=== PATIENT | male | born 1960 | race Caucasian/White ===

== ENCOUNTER 2018-03-22 06:41 | Inpatient (IN) ==
[~2018-03-22 06:41] MED LIST: LIDOCAINE W/ SODIUM BICARB 0.5 ML SYR ONE; LIDOCAINE W/ SODIUM BICARB 0.5 ML SYR SUBD ONE; Lactated Ringers 1,000 ML PRIMARY IV ONE; Nasal Sanitizer POPSWAB ampule 3 AMP (Nozin) PREOP DOSE ENOS SCH; Sodium Chloride 0.9% 250 ML ONE; Vancomycin Inj 1gm vial ONE; ceFAZolin Inj 2gm (Premix) 2 GM/50 ML BAG IV ONE
[2018-03-22] MEDS ORDERED: Sodium Chloride 0.9% 0 ML ONE (06:59)
[2018-03-22] MEDS ORDERED: PROPOFOL 10 MG/1 ML (200 MG/20 ML) VIAL IV ONE ×4 (11:23→16:41)
[2018-03-22] MEDS ORDERED: Propofol 1,000 MG/100 ML VIAL IV ONE ×4 (11:23→17:39)
[2018-03-22] MEDS ORDERED: REMIFENTANIL HCL 5 MG VIAL IV ONE ×2 (11:24→14:51)
[2018-03-22] MEDS ORDERED: fentaNYL Inj 250 MCG/5 ML VIAL ONE (11:24)
[2018-03-22] MEDS ORDERED: MIDAZOLAM 5 MG/1 ML ONE (11:24)
[2018-03-22] MEDS ORDERED: Sodium Chloride 0.9% vial 20 ML ONE (11:39)
[2018-03-22] MEDS ORDERED: BACITRACIN 50,000 UNIT VIAL IRRIG ONE ×3 (11:39→17:30)
[2018-03-22] MEDS ORDERED: BUPIVACAINE 0.25% W/ EPI - 10 ML VIAL ONE (11:39)
[2018-03-22] MEDS ORDERED: Lactated Ringers 1,000 ML PRIMARY IV ONE ×3 (12:21→18:31)
[2018-03-22] MEDS ORDERED: Acetaminophen 1000mg Inj 1,000 MG/100 ML VIAL IV ONE (12:41)
[2018-03-22] MEDS ORDERED: MIDAZOLAM HCL 50 MG/10 ML VIAL IVP PRN (12:57)
[2018-03-22] MEDS ORDERED: LIDOCAINE W/ SODIUM BICARB 0.5 ML SYR SUBD PRN (12:57)
[2018-03-22] MEDS ORDERED: Gentamicin Inj 40 MG/ML VIAL ONE (14:26)
[2018-03-22] MEDS ORDERED: Vancomycin Inj 1gm vial ONE (14:27)
[2018-03-22] MEDS ORDERED: Sodium Chloride 0.9% vial 10 ML ONE (17:30)
[2018-03-22] MEDS ORDERED: ceFAZolin 1 GM VIAL ONE (17:42)
[2018-03-22] MEDS ORDERED: LIDOCAINE MPF 2% - 5 ML (20 MG/1 ML) ONE (18:21)
[2018-03-22] MEDS ORDERED: HYDROmorphone 2 MG/1 ML ONE ×2 (18:30→19:52)
--- NOTE | 2018-03-22 19:40 | CRNA.PROGR ---
Anesthesia Recovery Phase I - Post Anesthesia Evaluation Patient's Condition on Arrival in Phase I: Fair Pain Level: 0 (somnulant , remains intubated but spont resperations through ett/ t-piece)
--- NOTE | 2018-03-22 19:52 | CRNA.PROGR ---
Anesthesia Time - Procedure/Recovery Time Start Date: 03/22/18 End Date: 03/22/18 Anesthesia : Time In: 11:48 Anesthesia : Time Out: 19:27 Anesthesia : Total Time: 459 - Total Anesthesia Time Total Anesthesia Time (minutes): 459 - Other Weight: 85.729 kg Height: 5 ft 9 in Body Mass Index (BMI): 27.8 Physical Status: P2 Anesthesia Type: General Anesthesia : ET (TIVA)
[2018-03-22] MEDS: HYDROmorphone 2 MG/1 ML IVP PRN ×2 (19:54→20:04)
--- NOTE | 2018-03-22 20:13 | GEN.OPNOTE ---
Operative Note Surgery Date: 03/22/18 Preoperative Diagnosis: 1.) Chronic low back pain. 2.) Adjacent level L2-3 degenerative disc disease. 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 4.) S/P L3-4 hardware removal and in-situ fusion. 5. ) S/P L4-S1 hardware removal, L3-4 TLIF/posterolateral instrumented fusion. 6. ) S/P L4-S1 TLIF/posterolateral instrumented fusion. Postoperative Diagnosis: Same. Procedure: 1.) Partial left L2-3 hemilaminotomy, medial facetectomy, complete foraminotomy. 2.) L2-3 discectomy with arthrodesis of the L2 and L3 endplates. 3.) Fusion of the anterior column of the spine at the L2-3 level from a posterior approach. 4.) Insertion of a 10mm x 11mm x 26mm Tritanium PL cage filled in the center with autograft into the L2-3 interspace. 5.) Posterolateral arthrodesis L2-3 bilaterally in preparation for posterolateral fusion. 6.) Posterolateral arthrodesis L3-4 bilaterally in preparation for posterolateral fusion. 7.) Segmental posterolateral instrumentation L2-L4 using the Merchant[employer] Aleta 3 pedicle scre w and daisha system. 8.) Use of autograft harvested from the same incision, cleaned of soft tissue, and morselized for posterolateral fusion. 9.) Use of medium Findersfeetronic InFuse bone morphogenic protein for posterolateral fusion. 10.) Use of 20 cc of Madison BIO DBM Plus Putty w/Cancellous chips (allograft) for posterolateral fusion. 11.) Use of 45 cc of Cancellous bone chips (allograft) for posterolateral fusion. Surgeon: Mino Mallory MD Finance Consultant: Other ([place]) Anesthesia Provider: Fernando Randolph CRNA Anesthesia Type: General Estimated Blood Loss (mL): 200 Indications: See pre-operative diagnosis. Findings: Degenerated facet joints L2-3/abnormal motioin L2-3 Complications: None Operative Summary: Mr. Herrera was met in the preoperative area. We reviewed the procedure to be performed. He was in agreement on the procedure to be performed. I answered any questions that he had to his satisfaction. Mr. Herrera was brought back to the operating room suite and was put under general anesthesia and intubated by the anesthesia staff. He had a Giraldo catheter placed. He had pneumatic compression hose placed on his lower legs bilaterally. Mr. Herrera was carefully rolled over onto the [place] surgical table with his arms gently positioned upwards with his shoulders abducted less than 90. His arms were well padded with foam padding atop of the padding the surgical arm boards. His chest and axilla was checked to be free from pressure points over the region of the brachial plexus bilaterally. His Giraldo catheter was checked to be free from kinks. His pneumatic compression hose was attached and pneumatic compression device. The C-arm fluoroscopy unit was used to help localize the skin incision for the approach the intended surgical levels incorporating Mr. Herrera's previous incision into the intended skin incision. The intended incision was marked with a skin marker was several crosshatches. Mr. Herrera was prepped and draped in the usual and standard fashion. He was given 2 g of Ancef 1 g of vancomycin IV for perioperative antibiosis. He was given 10 mg of Decadron IV. A standard surgical timeout was performed identifying the correct patient, the patient's symptoms, the correct procedure, and the correctg equipment being available for the procedure. The intended skin incision was injected with quarter percent Marcaine with 1 in 200,000 epinephrine. Approximately 15 mL of local anesthetic was used. The skin was incised with a 10 blade scalpel and all dermal and superficial bleeding points were coagulated with bipolar cautery. The incision was taken down through the subcutaneous tissue/scar tissue from the. patient's previous surgery down to the lumbar fascia. The spinous process of L2 above the patient's previous surgery was identified. Subperiosteal dissection was performed down the spinous process of L2 and out over the L2 lamina bilaterally. Further dissection caudally and exposed the remaining superior aspect of the L3 lamina from the patient's previous surgical procedure. This was dissected out as well in a subperiosteal fashion. More caudally the dissection was taken out laterally earlier to avoid entering into any previously decompressed portions of the spinal canal. The dissection was taken out lateral to the facet joints and the posterior lateral fusion mass bilaterally. The dissection was then taken out further laterally over the L2 transverse process bilaterally as well as to the lateral aspect of the posterior lateral fusion mass from L3-L4 bilaterally. Gelpi retractors were placed for self-retaining retraction. Soft tissue was cleaned over the posterior aspect of the spine including the bilateral posterior lateral fusion mass from the patient's previous surgery. This was performed with Bovie cautery and a large Le[place]ell rongeur. Extensive decortication was then performed of the L2 transverse processes bilaterally as well as the posterior lateral fusion mass bilaterally from L3-L4. This was performed with the [employer] high-speed electrical drill with a matchstick bit. The bone dust created was collected and saved to be used as autograft for the fusion portion of the procedure. The Merchant[employer]le neuro navigation reference arc was then securely attached to the L2 spinous process. A spin was performed with the Swogo 3-D fluoroscopy unit. The zoomsquare neuro navigation pedicle probe was then used to cannulate the L2 pedicles bilaterally as well as to recannulate the L3 and L4 pedicles bilaterally. The internal aspect the pedicles were palpated with a small ball- tip instrument to assure that there are no cortical breaches. The cannulation tracks in the pedicles were then tapped with the Merchant[employer]le Aleta 3 pedicle tap. The internal aspects of the pedicles were palpated again with a possible small ball-tip instrument. The pedicle screws were then placed. 5.5 x 55 mm pedicle screws were placed into the L2 pedicles bilaterally. 6.5 x 60 mm pedicle screws were placed into the L3 and L4 pedicles bilaterally. The pedicle screws all obtained good purchase in the pedicle and vertebral body bone. The pedicle screws were then all interrogated with triggered EMGs. All the pedicle screws demonstrated sufficient impedance indicating that they were not in close proximity to nerve structures with the exception of the right L4 pedicle screw which had a reading of 14 mA. Another spin was performed at the 3 -D fluoroscopy unit providing further confirmation of the placement of the pedicle screws. The right L4 pedicle screw did appear to be medial, it was subsequently removed. A partial hemilaminectomy of L2 on the left with medial facetectomy and complete foraminotomy was then performed. The facet joints bilaterally were abnormal with widened and hypertrophied joints. There was thickened ligament encountered during the decompression which produced lateral recess stenosis which was removed decompressing the lateral recess. The decompression was taken across the midline underneath the remaining bone on the right side of the canal. A [place] 4 instrument was used to carefully dissect the soft tissue lateral to the takeoff of the L2 nerve root identifying the L2-3 disc space. The L2 nerve root and thecal sac were carefully retracted with a D'rrvicky nerve root retractor. Epidural veins over the disc space were coagulated with bipolar cautery. An annulotomy was performed in the L2-3 disc space on the left with a 10 blade scalpel. The disc space was quite collapsed and was not able to be entered until some of the inferior endplate of the L2 vertebral body overhanging the L3 vertebral body was drilled away with a high-speed drill. Disc was then removed from the disc space with pituitary Ski Patrol Officer. Additional disc cartilaginous cartilaginous endplate was removed from the disc space using the K2 disc space patty from a size 7 mm disc space shaver to a size 9 mm disc space shaver in 1 mm increments. Disc material laterally in the disc space was loosened with the large down-biting Nicholas curet bilaterally with the fragments subsequently being removed with a pituitary rongeur. The L2 and L3 endplates were then decorticated using the large Nicholas down-biting curet. The L2-3 disc space was then irrigated with bacitracin irrigation. Approximately 2-3 mL of Madison BIO DBM plus putty with cancellus chips was then placed into the L2-3 interspace and moved anteriorly with a bone tamp. The interspace was incised with the appropriate size lumbar interbody cage. A 10 mm x 11 mm x 26 [address] Tritanium titanium [address] titanium lumbar interbody cage was then selected and filled in the center with autograft. The cage was then inserted into the L2-3 interspace and gently countersunk with a bone tamp and mallet. The cage obtained good purchase between the L2 and L3 endplates. Lateral fluoroscopy demonstrated the cage to be in good position. Attention was turned back to the posterior instrumentation. Two 6 mm x 70 mm pre-bent Madison titanium Aleta 3 rods were selected and placed into the [place] of the pedicle screws from L2-L4 bilaterally. Set screws were then placed over the rods in the [place]ips of the pedicle screws. These were first tightened down hand tight and then tightened down to their final tightness using the torque counter torque device. The surgical site was then pulse lavaged with 3 L of bacitracin/vancomycin/ gentamycin solution. The surgical site was then irrigated with hydrogen peroxide. The hydrogen peroxide was then irrigated away with bacitracin irrigation. The medium Medtronic infused bone morphogenic protein which was in for strips were then placed lateral to the hardware construct over the previously decorticated bony elements from the L2 transverse process down over the L3-4 fusion mass from the patient's previous surgical procedure. Any remaining autograft was mixed with 45 mL of cancellus bone chips (allograft) and this mixture was placed lateral to the hardware construct on the left from the L2 transverse process to over the L3-4 fusion mass and placed medial and lateral to the hardware construct on the right from the L2 transverse process to over the L3-4 fusion mass. The remaining approximately 17 mL of Jorge bio DBM plus putty with cancellus chips was then split with this product being placed over the cancellus chips lateral to the hardware construct on the left in medial and lateral to the hardware construct on the right. FloSeal hemostatic agent was placed in the hemilaminotomy/medial facetectomy/ foraminotomy site. This was cut covered over with a strip of Gelfoam. A medium Hemovac drain was then placed into the surgical site. The closure portion of the procedure was then begun. The lumbar fascia was reapproximated with #1 PDS suture as well as #1 Vicryl suture in an interrupted fashion. The surgical site was then irrigated with bacitracin irrigation. The deep subcutaneous tissue was reapproximated with 2- 0 Vicryl suture in a interrupted fashion. The dermis and superficial subcutaneous tissue was then reapproximated with 3-0 Vicryl suture in an inverted interrupted fashion. The Ioban drape was pulled back from the skin edges. The final layer closure was performed surgical stainless steel gely. The incision was cleansed with a bacitracin soaked sponge and dried with a sterile dry sponge. The incision was [place] then dressed with a Mepilex dressing. The surgical drain was then secured with a 2-0 Vicryl suture. The drain site was then dressed. All surgical drapes were then removed from Mr. Herrera. He was carefully rolled over onto the PACU stretcher. He was awoken and extubated by the anesthesia staff. He was taken to the recovery room in stable condition. All surgical counts were reported as correct by the scrub and circulating personnel.
--- NOTE | 2018-03-22 21:11 | NEURO.PROG ---
Subjective Post Op Day: 0 Additional Details: Patient seen in PACU, just prior to transfer to floor. He was awake but somewhat groggy. He was following commands and moving all extremities including the feet and toes bilaterally. I had called his sister, Kate per his request at the end of surgical procedure. Objective : Data - Vital Signs Vital Signs and I&O: Vital Signs - Last Taken Temperature 97.2 F 03/22/18 20:20 Pulse Rate 59 L 03/22/18 20:20 Respiratory Rate 10 L 03/22/18 20:20 Blood Pressure 131/72 03/22/18 20:20 Pulse Ox 96 03/22/18 20:20 Intake and Output (24hr x 4 totals) 03/20/18 03/21/18 03/22/18 03/23/18 05:59 05:59 05:59 05:59 Intake Total 4600 / 4600 Output Total 1175 / 1175 Balance 3425 / 3425
[2018-03-22] MEDS ORDERED: MORPHINE SULFATE 2 MG/1 ML IVP PRN (21:18)
[2018-03-22] MEDS ORDERED: oxyCODONE/APAP 10/325 Tab 1 EACH TAB PO PRN (21:18)
[2018-03-22] MEDS ORDERED: ceFAZolin Inj 1 GM in Sodium Chloride 0.9% 100 ML IV SCH ×2 (21:22→21:30)
[2018-03-22] MEDS: MORPHINE SULFATE 2 MG/1 ML IVP PRN (22:20)
--- NOTE | 2018-03-22 22:20 | CONSULT ---
Consult Note - Consult Consult Date: 03/22/18 Reason for Consult: PostOp Consulation : Neuro (Neurosurgery, Dr. Mallory) Requesting Physician: Dr. Mallory Primary Care Provider: KAVEH BARCENAS [facility] - History of Present Illness Date of Service: 03/22/18 Time of Service: 22:16 Chief Complaint: Back pain History of Present Illness: This is a pleasant 57-year-old male with chronic lymphocytic leukemia, seizure disorder, and problems with chronic back pain. He had a prior back surgery. He had noticed earlier this year per my review of the medical record that he developed worsening back pain and was really incapacitated for upwards of a couple months. The patient visited 2 neurosurgeons and opted to proceed with lumbar surgery with Dr. Mallory today. See his surgical notes regarding the procedure. Postoperative, the patient is still a little groggy and tired from anesthesia, but alert, oriented to person. He does answer some questions, but he still quite tired waking up as well. He denied any chest pain. No nausea or vomiting. His pain thus far is controlled postoperatively. Past Medical History Medical History: 1. Chronic lymphocytic leukemia. 2. Seizure disorder. 3. Chronic back pain Surgical History: 1. Prior lumbar surgery Pertinent Family History: Mother due diabetes on my review of medical record and father due to liver cancer Past Social History: History of smoking. Not . [place], [place]. No children. Does not Drink alcohol. Tobacco Use: Former Smoker In the Past 12 Months, Have Used or Abuse Any of the Following Substance: None Alcohol Use: None Review of Systems - Review of Systems ROS Unobtainable: Due to Condition (recovering from effects of anesthesia.) - Eye Exam Eye Exam: REPORTS: Negative System Review, Acuity Good, Other (denies vision loss) - Respiratory Respiratory: REPORTS: Negative System Review - Cardiovascular Cardiovascular: REPORTS: Negative System Review - Musculoskeletal Musculoskeletal: REPORTS: Back Pain (chronic) Medication / Allergies Home Medications: Home Medications 3 Medication Instructions Recorded Confirmed Type alprazolam 1 mg tablet 1 mg PO BID-TID PRN 02/27/18 03/22/18 History imatinib 100 mg capsule 400 mg PO QID cap 02/27/18 03/22/18 History lamotrigine 150 mg tablet 150 mg PO BID 02/27/18 03/22/18 History levetiracetam 250 mg tablet 250 mg PO BID 02/27/18 03/22/18 History pregabalin 200 mg capsule 200 mg PO BID 02/27/18 03/22/18 History Allergies/Adverse Reactions: Allergies 3 Allergy/AdvReac Type Severity Reaction Status Date / Time codeine Allergy Severe Siezures Verified 03/22/18 07:30 Exam - Vitals Vital Signs: Vital Signs Temperature 97.6 F Temperature Source Temporal Artery Scan Pulse Rate [Pulse Oximeter] 76 Pulse Rate 59 Respiratory Rate 18 Blood Pressure [Right Arm] 134/74 Blood Pressure 131/72 Pulse Ox 97 Oxygen Flow Rate 2 Oxygen Delivery Method Nasal Cannula Height 5 ft 9 in Weight 189 lb - General General Appearance: No Acute Distress - Head Head Exam: Normocephalic Additional Head Exam Details: some swelling around eyes and in face post operatively (was in prone position) - Eye Eye Exam: POSITIVE: No Scleral Icterus - ENT ENT Exam: POSITIVE: Mucous Membranes Dry - Neck Neck Exam: Normal Inspection, No Tenderness, No Lymphadenopathy, No Thyromegaly , JVP is not Raised - Respiratory Respiratory Exam: POSITIVE: Clear to Auscultation - Bilaterally, Breathing Non Labored - Cardiovascular Cardiovascular Exam: POSITIVE: RRR, No Murmur, No Clicks, No Gallops, No Rubs, No JVD - GI/Abdominal GI/Abdominal Exam: POSITIVE: Normal Bowel Sounds, Non Tender, Non Distended, Soft - Rectal Rectal Exam: POSITIVE: Deferred - External Exam: POSITIVE: Deferred Exam: POSITIVE: Deferred - Extremities Extremities Exam: POSITIVE: No Clubbing Present, No Edema Present, No Cyanosis Present - Neurological Neurological Exam: POSITIVE: Alert, No Facial Droop, Speech Intact / Clear, Moves All Extremities Equally - Central Line Examination Central Line Present on Admission: No Assessment and Plan - Patient Problems (1) CLL (chronic lymphocytic leukemia) Current Visit: Yes Status: Acute Code(s): C91.90 - Lymphoid leukemia, unspecified not having achieved remission (2) Seizure disorder Current Visit: Yes Status: Acute Code(s): G40.909 - Epilepsy, unspecified, not intractable, without status epilepticus (3) Chronic back pain Current Visit: No Status: Chronic Code(s): M54.9 - Dorsalgia, unspecified; G89.29 - Other chronic pain (4) Status post lumbar surgery Current Visit: Yes Status: Acute Code(s): Z98.890 - Other specified postprocedural states - Assessment / Plan Additional Assessment/Plan Details: resume keppra and lamictal to prevent seizures resume CLL medications PT/OT no DVT prophylaxis until okay with neurosurgery pain meds I agree with IV fluids thanks for consult, will be the Hospitalist service's pleasure to assess and advise on medical issues during this hospital stay.
[2018-03-22] MEDS: LevETIRAcetam Tab 500 MG TABLET PO SCH (23:34)
[2018-03-22] MEDS: IMATINIB 400 MG PO SCH (23:35)
[2018-03-22] MEDS: lamoTRIgine 100 MG TABLET PO SCH (23:35)
[2018-03-22] MEDS: ALPRAZolam Tab 1 MG TABLET PO PRN (23:53)
[2018-03-22] MEDS: PREGABALIN 100 MG CAPSULE PO SCH (23:54)
[2018-03-23] MEDS: ceFAZolin Inj 1 GM in Sodium Chloride 0.9% 100 ML IV SCH ×2 (01:51→11:19)
[2018-03-23] MEDS: oxyCODONE/APAP 10/325 Tab 1 EACH TAB PO PRN ×5 (01:52→21:19)
[2018-03-23 05:24] LABS: BASOPHILS # (AUTO) 0.02 10*3/UL; BASOPHILS % (AUTO) 0.2 % (0-1); EOSINOPHILS # (AUTO) 0.07 10*3/UL; EOSINOPHILS % (AUTO) 0.8 % (0-8); Hematocrit [HCT] 35.4 % (42.0-52.0); Hemoglobin [HGB] 12.3 g/dL (14.0-18.0); MEAN CORPUSCULAR HEMOGLOBIN 33.1 PG (27-31); MEAN CORPUSCULAR HGB CONC 34.7 g/dL (33-37); MEAN CORPUSCULAR VOLUME 95.2 FL (80-90); MEAN PLATELET VOLUME 11.5 FL (7.4-12.2); MONOCYTES # (AUTO) 0.64 10*3/UL (0.3-0.8); NEUTROPHILS # (AUTO) 7.46 10*3/UL; NEUTROPHILS % (AUTO) 81.9 % (50-80); RED BLOOD COUNT 3.72 10^6/uL (4.70-6.10)
[2018-03-23 05:31] LABS: BLOOD UREA NITROGEN 10 mg/dL (7-22)
[2018-03-23 05:42] LABS: PLATELET MORPHOLOGY COMMENT NORMAL MORPHOLOGY (NORM); RBC MORPHOLOGY COMMENT NORMAL MORPHOLOGY (NORM); WBC MORPHOLOGY COMMENT NORMAL MORPHOLOGY (NORM)
--- NOTE | 2018-03-23 05:54 | NEURO.PROG ---
Subjective Post Op Day: 1 Pain Management: PO Berrios Catheter: No Diet: Regular Ambulating: No Additional Details: Awake and alert. Moving all extremities. Denies any leg symptoms including leg pain, parasthesias, or weakness. Good knee flexion, dorsiflexion, plantarflexion bilaterally. Drain output - 230cc. Still has berrios catheter. Has not been out of bed yet. PLAN: 1.) Continue post-operative pain management. 2.) Discontinue berrios catheter. 3.) Mobilize. Objective : Data - Labs CBC and BMP: 03/23/18 03:58 03/23/18 03:58 - Vital Signs Vital Signs and I&O: Vital Signs - Last Taken Temperature 98.0 F 03/23/18 04:57 Pulse Rate 74 03/23/18 04:57 Respiratory Rate 18 03/23/18 04:57 Blood Pressure 120/65 03/23/18 04:57 Pulse Ox 97 03/23/18 04:57 Intake and Output (24hr x 4 totals) 03/20/18 03/21/18 03/22/18 03/23/18 05:59 05:59 05:59 05:59 Intake Total 5000 / 5000 Output Total 2255 / 2255 Balance 2745 / 2745
[2018-03-23] MEDS: lamoTRIgine 100 MG TABLET PO SCH ×3 (08:15→23:10)
[2018-03-23] MEDS: LevETIRAcetam Tab 500 MG TABLET PO SCH ×2 (08:15→21:18)
[2018-03-23] MEDS: PREGABALIN 100 MG CAPSULE PO SCH ×2 (08:15→23:07)
[2018-03-23] MEDS: IMATINIB 400 MG PO SCH ×2 (08:18→15:10)
[2018-03-23] MEDS: ALPRAZolam Tab 1 MG TABLET PO PRN (08:18)
[2018-03-23] MEDS ORDERED: lamoTRIgine 100 MG TABLET PO SCH (09:00)
[2018-03-23] MEDS ORDERED: LevETIRAcetam Tab 500 MG TABLET PO SCH (09:00)
[2018-03-23] MEDS ORDERED: PREGABALIN 100 MG CAPSULE PO SCH (09:00)
[2018-03-23] MEDS ORDERED: IMATINIB 400 MG PO SCH (09:00)
[2018-03-23] MEDS: MORPHINE SULFATE 2 MG/1 ML IVP PRN (09:34)
[2018-03-23] MEDS ORDERED: Propofol 1,000 MG/100 ML VIAL IV ONE (10:02)
[2018-03-23] MEDS ORDERED: PROPOFOL 10 MG/1 ML (200 MG/20 ML) VIAL IV ONE (10:02)
[2018-03-23] MEDS ORDERED: DEXAMETHASONE PF 10 MG/1 ML VIAL ONE (10:16)
[2018-03-23] MEDS ORDERED: ONDANSETRON 4 MG/2 ML VIAL ONE (10:16)
[2018-03-23] MEDS ORDERED: POTASSIUM CHLORIDE 20 MEQ TAB PO ONE (10:21)
--- NOTE | 2018-03-23 11:42 | PTI REPORT ---
Thank you for the referral of Cooper Herrera. He was seen on 03/23/18 for an inpatient evaluation status post lumbar fusion. SUBJECTIVE: The patient is a 57-year-old male who underwent a lumbar fusion yesterday by Dr. Mallory. The patient states he lives in [place]. He states he had been living with his mom until she approximately three years ago. He states he is currently totally disabled due to his epilepsy. PAST MEDICAL HISTORY: Past medical history can be found in the patient's medical record. OBJECTIVE FINDINGS: Pain: The patient rates his pain at 8 to 9/10 on the verbal analog scale (0=no pain, 10=worst pain). Cognition: The patient is a little bit slower to process information and takes a little extra time to communicate with. Range of motion: Range of motion of the lower extremities is good. Range of motion of the upper extremities is good. Sensation/Strength: The patient has good sensation and strength of both lower extremities including knees, toes, and all other movement. Core strength is hard to assess due to pain. Transfers: We will assess the patient's transfers once his lumbar corset arrives. ASSESSMENT: The patient is post op lumbar fusion. The patient is stable and doing well. There is a lumbar corset coming from [place] from the retail equipment associate that we are to receive before transferring and ambulating. We will continue our assessment at that time. The patient does not have any steps or stairs into his home but we will have to make sure that he is independent in all ADLs before being transferred to [place]. Short-Term Goals: To be met by discharge from inpatient: Patient will be able to perform all bed mobility and transfers independently. Long-Term Goals: To be met following discharge from inpatient: Patient will return home, independent with all ADLs and functional mobility. TREATMENT PLAN: Patient will be seen B.I.D during the week and one time per day over the weekend as an inpatient for transfers, ambulation, and working toward independence in all ADLs before discharge. INITIAL TREATMENT: Treatment today consisted of the initial evaluation activities only. RODY
[2018-03-23] MEDS ORDERED: ALPRAZolam Tab 1 MG TABLET PO PRN (16:10)
--- NOTE | 2018-03-23 16:40 | PT.PROG ---
Progress Note Progress Note: S. Patient stated that he is feeling a little better than this morning, he is very concerned about his pain at this time. O. Patient performed log roll transfer to seated then stood and ambulated 24 feet from the bed to sink and back to the bed. Patient performed log roll transfer back to supine where he was left with alarm and call light. A. Patient tolerated ambulation fair, he is very hesitant and requires frequent verbal cues to stay motivated and complete ambulation. Patient would continue to benefit from skilled therapy to increase strength and mobility at this time. P. Continue POC.
--- NOTE | 2018-03-23 19:17 | PDOC(PROG) ---
Date of Service: 03/23/18 Time of Service: 14:00 Interval History: no chest pain, no SOB, no nausea or vomiting. face swelling is better/ resolved. lots of pain walking. got an extra dose of CLL drug and doses clarified and adjusted for everything. Objective : Data - Labs CBC and BMP: 03/23/18 03:58 03/23/18 03:58 Objective : Exam - General General Appearance: No Acute Distress, Cooperative Additional General Exam Details: Vital Signs - Last Taken Temperature 97.6 F 03/23/18 17:00 Pulse Rate 80 03/23/18 17:00 Respiratory Rate 16 03/23/18 17:00 Blood Pressure 124/67 03/23/18 17:00 Pulse Ox 92 03/23/18 17:00 - Head Additional Head Exam Details: face swelling improved. has some cheek bruising. - Eye Eye Exam: No Scleral Icterus - ENT ENT Exam: Mucous Membranes Moist - Respiratory Respiratory Exam: Clear to Auscultation - Bilaterally, Breathing Non Labored - Cardiovascular Cardiovascular Exam: RRR, No Murmur, No Clicks, No Gallops, No Rubs, No JVD - GI/Abdominal GI/Abdominal Exam: Non Tender, Non Distended, Soft - Extremities Extremities Exam: No Clubbing Present, No Edema Present, No Cyanosis Present - Neurological Neurological Exam: Alert, Oriented x 3, No Facial Droop, Speech Intact / Clear, Moves All Extremities Equally Additional Neurological Exam Details: slow with ambulation, but in some pain, took two people with standby to help walk Assessment and Plan - Patient Problems (1) CLL (chronic lymphocytic leukemia) Current Visit: Yes Status: Acute Code(s): C91.90 - Lymphoid leukemia, unspecified not having achieved remission (2) Seizure disorder Current Visit: Yes Status: Acute Code(s): G40.909 - Epilepsy, unspecified, not intractable, without status epilepticus (3) Chronic back pain Current Visit: No Status: Chronic Code(s): M54.9 - Dorsalgia, unspecified; G89.29 - Other chronic pain Qualifiers: Back pain location: low back pain Back pain laterality: bilateral Sciatica presence: without sciatica Qualified Code(s): M54.5 - Low back pain; G89.29 - Other chronic pain (4) Status post lumbar surgery Current Visit: Yes Status: Acute Code(s): Z98.890 - Other specified postprocedural states - Assessment / Plan Additional Assessment/Plan Details: adjusted CLL medicaitons. continue PT and OT stopped IV fluids saline lock IV catheter out tomorrow AED drugs should continue
[2018-03-23] MEDS: ALPRAZolam Tab 1 MG TABLET PO SCH (23:10)
[2018-03-24] MEDS: oxyCODONE/APAP 10/325 Tab 1 EACH TAB PO PRN ×5 (02:23→22:12)
[2018-03-24 06:13] LABS: BLOOD UREA NITROGEN 10 mg/dL (7-22); BUN/CREATININE RATIO 11.11 (6-20)
[2018-03-24] MEDS: lamoTRIgine 100 MG TABLET PO SCH ×3 (08:26→22:11)
[2018-03-24] MEDS: ALPRAZolam Tab 1 MG TABLET PO SCH ×3 (08:26→22:11)
[2018-03-24] MEDS: PREGABALIN 100 MG CAPSULE PO SCH ×2 (08:27→22:11)
[2018-03-24] MEDS: LevETIRAcetam Tab 500 MG TABLET PO SCH ×2 (08:27→20:46)
[2018-03-24] MEDS: IMATINIB 400 MG PO SCH (08:30)
--- NOTE | 2018-03-24 08:47 | NEURO.PROG ---
Subjective Post Op Day: 2 Pain Management: PO Giraldo Catheter: Yes Diet: Regular Ambulating: Yes Additional Details: Awake and alert. Oriented and conversant. Still with surgical pain as expected. Denies any leg symptoms. Appears comfortable lying in hospital bed having breakfast. Full dorsiflexion/planterflexion bilaterally. Drain output overnight - 120cc. Patient's brace has been delivered. PLAN: 1.) Continue post-operative pain control. 2.) Discontinue Giraldo catheter. 3.) Continue drain. 4.) Continue to mobilize. Objective : Data - Labs CBC and BMP: 03/23/18 03:58 03/24/18 05:12 - Vital Signs Vital Signs and I&O: Vital Signs - Last Taken Temperature 98.3 F 03/24/18 07:49 Pulse Rate 68 03/24/18 07:49 Respiratory Rate 16 03/24/18 07:49 Blood Pressure 93/61 03/24/18 07:49 Pulse Ox 95 03/24/18 07:49 Intake and Output (24hr x 4 totals) 03/22/18 03/23/18 03/24/18 03/25/18 05:59 05:59 05:59 05:59 Intake Total 5000 / 5000 2830 / 2830 Output Total 2255 / 2255 6480 / 6480 Balance 2745 / 2745 -3650 / -3650
--- NOTE | 2018-03-24 12:08 | PT.PROG ---
Progress Note Progress Note: S. Patient stated that he is feeling a little better this morning. O. Patient performed log roll transfer to seated then stood and ambulated 12 feet from the bed to sink where he stood x 5 minutes then 12 feet back to the chair. where he was left with alarm and call light. A. Patient tolerated ambulation fair, he is very hesitant and requires frequent verbal cues to stay motivated and complete ambulation. Patient would continue to benefit from skilled therapy to increase strength and mobility at this time. P. Continue POC.
--- NOTE | 2018-03-24 12:37 | PDOC(PROG) ---
Date of Service: 03/24/18 Time of Service: 12:30 Interval History: Subjective Patient denying new symptoms. He has pain in his back which seem to be controlled with the current pain medication. He is denying new symptoms. He has a history of seizures and he is on medications for that. The last seizure was back in in September. Objective : Data - Labs CBC and BMP: 03/23/18 03:58 03/24/18 05:12 Objective : Exam - General General Appearance: No Acute Distress, Cooperative - Head Head Exam: Normal Inspection - Eye Eye Exam: Normal Appearance - ENT ENT Exam: Normal Exam - Neck Neck Exam: Normal Inspection - Respiratory Respiratory Exam: Clear to Auscultation - Bilaterally - Cardiovascular Cardiovascular Exam: RRR - GI/Abdominal GI/Abdominal Exam: Normal Bowel Sounds, Non Tender, Non Distended, Soft, No Organomegaly - Rectal Rectal Exam: Deferred - External Exam: Deferred Exam: Deferred - Extremities Extremities Exam: Normal Inspection - Neurological Neurological Exam: Alert, Oriented x 3 Additional Neurological Exam Details: Slow but the no focal deficit. - Psychiatric Psychiatric Exam: Normal Affect - Integumentary Integumentary Exam: Normal Color Assessment and Plan - Patient Problems (1) Chronic back pain Current Visit: No Status: Chronic Comment: He is status post surgery continue current pain medications. Continue PT and OT. He said post discharge her we will stay with his sister. He seems to be progressing slowly. Did speak with the human services case manager and did tell her to look into the possibility of [facility], she'll consult them she will talk to the patient about it. Code(s): M54.9 - Dorsalgia, unspecified; G89.29 - Other chronic pain Qualifiers: Back pain location: low back pain Back pain laterality: bilateral Sciatica presence: without sciatica Qualified Code(s): M54.5 - Low back pain; G89.29 - Other chronic pain (2) CLL (chronic lymphocytic leukemia) Current Visit: Yes Status: Acute Comment: He is not sure what type of leukemia, suspect though mainly chronic myelogenous leukemia rather than CLL. Code(s): C91.90 - Lymphoid leukemia, unspecified not having achieved remission (3) Seizure disorder Current Visit: Yes Status: Acute Comment: Same med Code(s): G40.909 - Epilepsy, unspecified, not intractable, without status epilepticus (4) Status post lumbar surgery Current Visit: Yes Status: Acute Comment: Same pain medication and continue PT and OT. Code(s): Z98.890 - Other specified postprocedural states
[2018-03-24] MEDS: MORPHINE SULFATE 2 MG/1 ML IVP PRN (15:07)
--- NOTE | 2018-03-24 15:58 | OTI REPORT ---
Thank you for the referral of Cooper Herrera. He was seen on 03/23/18 for an occupational therapy inpatient evaluation status post lumbar fusion. SUBJECTIVE: The patient is a 57-year-old male. The patient reports a pain level of 7/10 on the verbal analog scale (0=no pain, 10=worst pain) currently; however, he states he does feel somewhat better than he did this morning. Prior to surgery the patient was living alone at home. The patient lives in [place], [place]. The patient does have a history of epilepsy with grand mal seizures. Due to this and post surgical precautions, the patient is going to be staying with his sister and [id number]-sen following discharge prior to returning home. The patient's sister's house has a couple of steps to the entrance of the home with grab bars. The rest of the house is all on one floor. There is a step over tub /shower in the bathroom. The patient also has a step over tub/shower at home; however, he does not have any stairs to the entrance of his home. The patient is unable to drive secondary to his epilepsy. The patient was able to complete all dressing tasks; however, he did report that he struggled to tie his shoes and he had to use his pant leg to pull his foot up in order to tie his shoes at prior level of function. The patient was having significant issues with pain and weakness. The patient does report that his left lower extremity feels like it is hard to move following surgery and he did report this while we were walking. PAST MEDICAL HISTORY: Past medical history can be found in the patient's medical record. OBJECTIVE FINDINGS: General observations: The patient was sitting in bed upon the therapist's arrival. The patient was oriented to date and reason for hospitalization. He does appear to have a slower processing speed secondary to issues related to his seizures. When given appropriate time, he was able to answer questions intelligently that were accurate in nature. Range of motion: The patient demonstrated upper extremity range of motion that was within functional limits. Strength: Upper extremity strength was not assessed. Bed mobility: The patient demonstrated the ability to complete a log roll in bed to sit at edge of bed with moderate assistance secondary to pain. The patient was able to tolerate sitting edge of bed with his feet on the ground for approximately 5 minutes with no losses of balance and maintaining sitting upright. Transfers: The patient was able to perform a sit to stand transfer with min assist for safety. Ambulation: The patient ambulated approximately 10 feet with use of standard walker and contact guard assist x2 for safety. The patient did move at a very slow pace and he did require minimal assistance at times to move the walker in front of him as well as verbal cues to perform ambulation tasks. Activities of daily living: Lower extremity and upper extremity dressing was not completed at this time secondary to the patient's catheter and pain level. We will attempt again tomorrow morning. The patient was issued a long handled bath sponge, a drip molder, and a sock aide. The patient may benefit from a long handled shoe horn upon further assessment. The patient may also need a shower chair prior to discharge home. ASSESSMENT: The patient did report an understanding of his back precautions to include no bending, lifting, or twisting. He was also able to verbalize and demonstrate an understanding of log rolling technique in and out of bed. Rehab potential is good to fair. Problem List: Decreased ability to perform lower extremity dressing Decreased functional mobility Decreased ability to complete functional transfers Decreased ability to complete ADLs Decreased activity tolerance Short-Term Goals: To be met by discharge from inpatient: Patient will demonstrate increased activity tolerance and standing balance to stand at the sink x10 minutes to complete standing grooming tasks with no losses of balance. Patient will demonstrate the ability to complete lower extremity dressing tasks to include donning and doffing socks and pants with mod independence with use of adaptive equipment. Patient will complete a seated showering task with mod independence with use of adaptive equipment as needed safely while following post surgical precautions. Patient will complete a toileting task with mod independence with use of adaptive equipment as needed. Patient will complete all functional transfers to include bed, chair, and toilet with contact guard assist for safety only. Long-Term Goals: To be met following discharge from inpatient: Patient will be seen by outpatient physical therapy. TREATMENT PLAN: Patient will be seen B.I.D during the week and one time per day over the weekend as an inpatient to address the above goals and objectives. INITIAL TREATMENT: Treatment today consisted of the initial evaluation activities only. Following today's treatment the patient returned to bed. He required mod assist to lift his legs and perform a log roll back into bed as well as moderate assistance to reposition in bed. RODY
--- NOTE | 2018-03-24 16:53 | PT.PROG ---
Progress Note Progress Note: S. Patient stated that he has been struggling with pain this afternoon, however he states that he is willing to get up and walk a little. O. Patient performed log roll transfer to seated then stood and ambulated 20 feet from the bed to the garner and 15 feet back to his chair where he was left with OT for further therapy. A. Patient tolerated ambulation fair, he is very hesitant and requires frequent verbal cues to stay motivated and complete ambulation. Patient would continue to benefit from skilled therapy to increase strength and mobility at this time. P. Continue POC.
[2018-03-25] MEDS: oxyCODONE/APAP 10/325 Tab 1 EACH TAB PO PRN ×5 (02:00→22:54)
[2018-03-25] MEDS: lamoTRIgine 100 MG TABLET PO SCH ×3 (07:27→22:53)
[2018-03-25] MEDS: PREGABALIN 100 MG CAPSULE PO SCH ×2 (07:27→22:53)
[2018-03-25] MEDS: IMATINIB 400 MG PO SCH (07:28)
[2018-03-25] MEDS: ALPRAZolam Tab 1 MG TABLET PO SCH ×3 (07:28→22:54)
--- NOTE | 2018-03-25 07:49 | NEURO.PROG ---
Subjective Additional Details: Awake and alert Vital signs stable, afebrile No new labs. Moves all extremities,with good knee, dorsi and plantar flexion bilaterally Giraldo dc'd yestarday Drainage 10ml/hr. Plan dc drain today. Encourage mobilization and pulmonary toilet. Continue with plan for [facility]. Objective : Data - Labs CBC and BMP: 03/23/18 03:58 03/24/18 05:12 - Vital Signs Vital Signs and I&O: Vital Signs - Last Taken Temperature 99.5 F 03/25/18 07:20 Pulse Rate 73 03/25/18 07:20 Respiratory Rate 17 03/25/18 07:20 Blood Pressure 100/63 03/25/18 07:20 Pulse Ox 95 03/25/18 07:20 Intake and Output (24hr x 4 totals) 03/23/18 03/24/18 03/25/18 03/26/18 05:59 05:59 05:59 05:59 Intake Total 5000 / 5000 2830 / 2830 1890 / 1890 Output Total 2255 / 2255 6480 / 6480 2285 / 2285 Balance 2745 / 2745 -3650 / -3650 -395 / -395
[2018-03-25] MEDS: LevETIRAcetam Tab 500 MG TABLET PO SCH ×2 (08:46→21:28)
--- NOTE | 2018-03-25 10:10 | PT.PROG ---
Progress Note Progress Note: S. Patient stated that he is still struggling with pain, however agreed to do more today. O. Patient was seated at the edge of bed then stood and ambulated 40 feet from the bed to the garner and 35 feet back to his chair where he performed sit to stands x 4, Patient was left in chair and agreed to stay up for 20 minutes, he also agreed to get back in the chair for lunch. Patient was left with call light and alarm. A. Patient tolerated ambulation fair, patient requires min assist with sit to stand transfers and Stand by guard assist with ambulation, however he is very hesitant and requires frequent verbal cues to continue with ambulation, he was able to ambulate further today compared to yesterday. Patient would continue to benefit from skilled therapy to increase strength and mobility at this time. P. Continue POC.
--- NOTE | 2018-03-25 17:36 | PDOC(PROG) ---
Date of Service: 03/25/18 Time of Service: 15:00 Interval History: Subjective Continue to complain from back pain but seems to be controlled with current pain medications. He said he did walk with physical therapy today. Objective : Data - Labs CBC and BMP: 03/23/18 03:58 03/24/18 05:12 Objective : Exam - General General Appearance: No Acute Distress, Cooperative - Head Head Exam: Normal Inspection - Eye Eye Exam: Normal Appearance - ENT ENT Exam: Normal Exam - Neck Neck Exam: Normal Inspection - Respiratory Respiratory Exam: Clear to Auscultation - Bilaterally - Cardiovascular Cardiovascular Exam: RRR - GI/Abdominal GI/Abdominal Exam: Normal Bowel Sounds, Non Tender, Non Distended, Soft, No Organomegaly - Rectal Rectal Exam: Deferred - External Exam: Deferred Exam: Deferred - Extremities Extremities Exam: Normal Inspection - Back Additional Back Exam Details: Dressing applied to the back. Clean. - Neurological Neurological Exam: Alert, Oriented x 3, CN II-XII Intact, No Facial Droop, Speech Intact / Clear Additional Neurological Exam Details: Slow but otherwise no focal findings. - Psychiatric Psychiatric Exam: Normal Affect - Integumentary Integumentary Exam: Normal Color Assessment and Plan - Patient Problems (1) Chronic back pain Current Visit: No Status: Chronic Comment: He is status post surgery. Continue PT and OT and current pain medications. I did speak with the marketing planner yesterday about referral to [facility] and I think she did that. He seems open to going there but he do understand that he would need to participate more. We'll see what they think about him being a candidate for them so will keep him here until Tuesday and see their recommendation. If they don't accept him he may need to go to his sister home as the originally planned. Code(s): M54.9 - Dorsalgia, unspecified; G89.29 - Other chronic pain Qualifiers: Back pain location: low back pain Back pain laterality: bilateral Sciatica presence: without sciatica Qualified Code(s): M54.5 - Low back pain; G89.29 - Other chronic pain (2) CLL (chronic lymphocytic leukemia) Current Visit: Yes Status: Acute Comment: Continue his previous med. Code(s): C91.90 - Lymphoid leukemia, unspecified not having achieved remission (3) Seizure disorder Current Visit: Yes Status: Acute Comment: Same medications Code(s): G40.909 - Epilepsy, unspecified, not intractable, without status epilepticus (4) Status post lumbar surgery Current Visit: Yes Status: Acute Comment: Continue PT and OT. Same pain medications Code(s): Z98.890 - Other specified postprocedural states
[2018-03-25] MEDS: DOCUSATE 100 MG CAPSULE PO SCH (21:29)
[2018-03-26] MEDS: oxyCODONE/APAP 10/325 Tab 1 EACH TAB PO PRN ×4 (04:24→20:06)
[2018-03-26] MEDS: IMATINIB 400 MG PO SCH (07:35)
[2018-03-26] MEDS: PREGABALIN 100 MG CAPSULE PO SCH ×2 (07:35→23:25)
[2018-03-26] MEDS: ALPRAZolam Tab 1 MG TABLET PO SCH ×3 (07:35→23:26)
[2018-03-26] MEDS: lamoTRIgine 100 MG TABLET PO SCH ×3 (07:35→23:24)
--- NOTE | 2018-03-26 07:35 | CONSULT ---
Consult Note - Consult Primary Care Provider: KAVEH BARCENAS - History of Present Illness History of Present Illness: Awake, alert, conversant. We talked at length about his motivation to get additional help at [facility]. VSS, afebrile Moves all extremities well. Strength in bilateral knee flexion, and dorsi/ plantar flexion is good. He does complain of incisional pain and is using oxycodone every 4 hours. Drain is out. Incision dry. Continue with physical therapy and plan for [facility] Past Medical History Medical History: 1. Chronic lymphocytic leukemia. 2. Seizure disorder. 3. Chronic back pain Surgical History: 1. Prior lumbar surgery Pertinent Family History: Mother due diabetes on my review of medical record and father due to liver cancer Past Social History: History of smoking. Not . [address]. No children. Does not Drink alcohol. Tobacco Use: Former Smoker In the Past 12 Months, Have Used or Abuse Any of the Following Substance: None Alcohol Use: None Medication / Allergies Home Medications: Home Medications 3 Medication Instructions Recorded Confirmed Type alprazolam 1 mg tablet 1 mg PO BID-TID PRN 02/27/18 03/22/18 History imatinib 100 mg capsule 400 mg PO QID cap 02/27/18 03/22/18 History lamotrigine 150 mg tablet 150 mg PO BID 02/27/18 03/22/18 History levetiracetam 250 mg tablet 250 mg PO BID 02/27/18 03/22/18 History pregabalin 200 mg capsule 200 mg PO BID 02/27/18 03/22/18 History Allergies/Adverse Reactions: Allergies 3 Allergy/AdvReac Type Severity Reaction Status Date / Time codeine Allergy Severe Siezures Verified 03/22/18 07:30 Exam - Vitals Vital Signs: Vital Signs Temperature 97.5 F Temperature Source Temporal Artery Scan Pulse Rate [Pulse Oximeter] 73 Pulse Rate 59 Respiratory Rate 20 Blood Pressure [Left Arm] 102/65 Blood Pressure [Right Arm] 110/65 Blood Pressure 131/72 Pulse Ox 97 Oxygen Flow Rate 1.5 Oxygen Delivery Method Nasal Cannula Height 5 ft 9 in Weight 88.541 kg Results - Labs CBC and BMP: 03/23/18 03:58 03/24/18 05:12
[2018-03-26] MEDS: DOCUSATE 100 MG CAPSULE PO SCH ×2 (08:50→20:06)
[2018-03-26] MEDS: LevETIRAcetam Tab 500 MG TABLET PO SCH ×2 (08:51→20:05)
[2018-03-26] MEDS: POLYETHYLENE GLYCOL 3350 17 GM POWDER PO PRN (09:08)
--- NOTE | 2018-03-26 12:32 | OT.PROG ---
Progress Note Progress Note: S: pt was talkative today. Stated he already had breakfast. O: pt was seen in his room and completed functional transfer approx 30-35 ft at a very slow pace. He was left upright in chair upon completion. A: pt participates and did not appear to have an increase in pain. He does transfer it is just very slow. P: continue per POC.
--- NOTE | 2018-03-26 12:57 | PDOC(PROG) ---
Date of Service: 03/26/18 Time of Service: 11:00 Interval History: Subjective Doing somewhat better today compared to yesterday. He said he did more with physical therapy last night. He said though he was hurting after that. Today he did the same but he is not hurting as yesterday. He did not have a bowel movement yet. He said he though he is eating less than before. Objective : Data - Labs CBC and BMP: 03/23/18 03:58 03/24/18 05:12 Objective : Exam - General General Appearance: No Acute Distress, Cooperative - Head Head Exam: Normal Inspection - Eye Eye Exam: Normal Appearance - ENT ENT Exam: Normal Exam - Neck Neck Exam: Normal Inspection - Respiratory Respiratory Exam: Clear to Auscultation - Bilaterally - Cardiovascular Cardiovascular Exam: RRR - Rectal Rectal Exam: Deferred - External Exam: Deferred Exam: Deferred - Extremities Extremities Exam: Normal Inspection - Back Additional Back Exam Details: He is wearing a brace today. - Neurological Neurological Exam: Alert, Oriented x 3, CN II-XII Intact Additional Neurological Exam Details: He is slow but no focal findings Assessment and Plan - Patient Problems (1) Chronic back pain Current Visit: No Status: Chronic Comment: Status post surgery continue current pain medication. Will speak with the mechanical planner tomorrow and see whether [facility] will accept him. He Is concerned also about his insurance whether that will cover for it. I did tell him we'll discuss it with the mechanical planner. Code(s): M54.9 - Dorsalgia, unspecified; G89.29 - Other chronic pain Qualifiers: Back pain location: low back pain Back pain laterality: bilateral Sciatica presence: without sciatica Qualified Code(s): M54.5 - Low back pain; G89.29 - Other chronic pain (2) CLL (chronic lymphocytic leukemia) Current Visit: Yes Status: Acute Comment: I think it's chronic myelogenous leukemia continue same meds Code(s): C91.90 - Lymphoid leukemia, unspecified not having achieved remission (3) Seizure disorder Current Visit: Yes Status: Acute Comment: Same med Code(s): G40.909 - Epilepsy, unspecified, not intractable, without status epilepticus (4) Status post lumbar surgery Current Visit: Yes Status: Acute Comment: Continue PT and OT Code(s): Z98.890 - Other specified postprocedural states
[2018-03-27] MEDS: oxyCODONE/APAP 10/325 Tab 1 EACH TAB PO PRN ×4 (06:42→20:36)
[2018-03-27] MEDS: ALPRAZolam Tab 1 MG TABLET PO SCH ×3 (07:44→22:03)
[2018-03-27] MEDS: PREGABALIN 100 MG CAPSULE PO SCH ×2 (07:45→22:03)
[2018-03-27] MEDS: lamoTRIgine 100 MG TABLET PO SCH ×3 (07:46→22:03)
[2018-03-27] MEDS: IMATINIB 400 MG PO SCH (07:47)
--- NOTE | 2018-03-27 10:08 | NEURO.PROG ---
Subjective Additional Details: Mr. Herrera is quite conversant and ready to make a plan for transfer, preferably to a assisted in [place] to be near family and without the stress of "too aggressive" physical therapy. Occupational therapy is here to do an evaluation. Afebrile, VSS Incision is intact, dry and without erythema. Strength checks in bilateral extremities are intact He is able to move about in his room independently, though is still quite slow. From a Neuro standpoint he is cleared for discharge to either [place] or a assisted in [place]. Incision care with luciano wipes and mepilex dressing daily. Back brace is to be worn when he is out of bed. Dr. Mallory's office will contact the patient to make a 2 week followup in the office Objective : Data - Labs CBC and BMP: 03/23/18 03:58 03/24/18 05:12 - Vital Signs Vital Signs and I&O: Vital Signs - Last Taken Temperature 97.8 F 03/27/18 06:45 Pulse Rate 66 03/27/18 06:45 Respiratory Rate 16 03/27/18 06:45 Blood Pressure 100/58 03/27/18 06:45 Pulse Ox 94 03/27/18 06:45 Intake and Output (24hr x 4 totals) 03/25/18 03/26/18 03/27/18 03/28/18 05:59 05:59 05:59 05:59 Intake Total 1890 / 1890 1910 / 1910 1835 / 1835 Output Total 2285 / 2285 2370 / 2370 1600 / 1600 500 / 500 Balance -395 / -395 -460 / -460 235 / 235 -500 / -500
--- NOTE | 2018-03-27 10:56 | OT AM DAY ---
Diagnosis : Lumbar Fusion AM - Occupational Therapy S: The patient reports he does have some pain. He states he has some difficulty completing his transfers. O: The patient takes 3-4x longer with all ADLs and functional transfers as well as processing speed for cognitive tasks. He was able to come from supine to sit with max assist. While sitting edge of bed, the therapist educated the patient on how to use a hand clipper. The patient was able to use the hand clipper with mod assist. The patient needed cues to push up off of the bed to stand and required mod assist to pull pants up around waist. The therapist went through 50% of the step by step directions of using the sock aide. With use of the sock aide, the patient required mod assist to pull sock onto foot. We will slowly introduce the steps to the patient with this procedure. The patient was able to come from sit to stand and walk to the sink where he was able to stand x5 minutes while completing brushing teeth and washing face with contact guard to min assist for balance. The patient then transferred back to the chair. Chair alarm was set and call light was within reach. A: The patient requires mod to max assist for functional bed mobility. He also requires increased time to complete tasks secondary to his seizure disorder as this may have affected his processing speed. In general on a functional level, the patient definitely requires 24-hour assistance at this time. P: Continue seeing patient BID during the week and one time per day over the weekend for upper extremity strengthening, ADLs, and overall functional mobility. RODY
[2018-03-27] MEDS: POLYETHYLENE GLYCOL 3350 17 GM POWDER PO PRN (11:06)
[2018-03-27] MEDS: DOCUSATE 100 MG CAPSULE PO SCH ×2 (11:10→20:37)
[2018-03-27] MEDS: LevETIRAcetam Tab 500 MG TABLET PO SCH ×2 (11:10→20:38)
--- NOTE | 2018-03-27 12:06 | OT.PROG ---
Progress Note Progress Note: S: pt stated that he wants to go back to [place] so he can take care of his dog and bills. pt wants to do what he can and get things done as fast as possible so he can return home. O: tx consisted of donning back brace and positioning of back brace, functional ambulation to shower x 50' with stander walker and CGA for safety. A: pt needed MOD VCs to attempt to walk farther than his door in his room. pt is wanting to complete therapy but when it comes to participating in therapy, he does not want to be "rushed". pt had difficulties with attempting a normal gait pattern. P: continue POC
--- NOTE | 2018-03-27 13:30 | PDOC(PROG) ---
Date of Service: 03/27/18 Time of Service: 13:00 Interval History: Subjective Patient was upset as he was looking for stuff that he brought the day of the surgery and now they did not locate it yet, Otherwise he seems to be stable. No new symptoms. Objective : Data - Labs CBC and BMP: 03/23/18 03:58 03/24/18 05:12 Objective : Exam - General General Appearance: No Acute Distress - Head Head Exam: Normal Inspection - Eye Eye Exam: Normal Appearance - ENT ENT Exam: Normal Exam - Neck Neck Exam: Normal Inspection - Respiratory Respiratory Exam: Clear to Auscultation - Bilaterally - Cardiovascular Cardiovascular Exam: RRR - GI/Abdominal GI/Abdominal Exam: Normal Bowel Sounds, Non Tender, Non Distended - Rectal Rectal Exam: Deferred - External Exam: Deferred - Extremities Extremities Exam: Normal Inspection - Back Additional Back Exam Details: Dressing applied to the back. - Neurological Neurological Exam: Alert, Oriented x 3, CN II-XII Intact, No Facial Droop Additional Neurological Exam Details: Slow but otherwise no focal findings Assessment and Plan - Patient Problems (1) Chronic back pain Current Visit: No Status: Chronic Comment: Status post surgery. Continue current pain medications. Apparently he 's not going to [place]. I spoke with mission planner and they're looking now for him to go to one of the custodial in [place]. If he is not going there then probably we'll discharge him home to his sister's care Code(s): M54.9 - Dorsalgia, unspecified; G89.29 - Other chronic pain Qualifiers: Back pain location: low back pain Back pain laterality: bilateral Sciatica presence: without sciatica Qualified Code(s): M54.5 - Low back pain; G89.29 - Other chronic pain (2) Seizure disorder Current Visit: Yes Status: Acute Comment: Continue same medications Code(s): G40.909 - Epilepsy, unspecified, not intractable, without status epilepticus (3) Status post lumbar surgery Current Visit: Yes Status: Acute Comment: He can be discharged per my discussion with the PA of Dr. Mallory Code(s): Z98.890 - Other specified postprocedural states
--- NOTE | 2018-03-27 14:55 | OT PM DAY ---
Diagnosis : Lumbar Fusion PM - Occupational Therapy S: The patient reports he was in a lot of pain earlier, at a 10/10 on the verbal analog scale (0=no pain, 10=worst pain). They gave him a shot and he is feeling much better. He reports a pain level of 4/10 and agrees to participate in occupational therapy session. O: The patient was seen following physical therapy session with a focus on performing ADLs. The patient was seated in recliner chair where he performed lower extremity dressing to include donning and doffing socks with use of a sock aide and pipe maker. He completed the task with minimal assistance and minimal verbal cueing. The patient did require a little more verbal cueing and required extra time to complete the task. The patient did not report any increase in pain with activity. A: The patient may benefit from continued occupational therapy to work on adaptive equipment and functional mobility tasks. P: Continue seeing patient BID during the week and one time per day over the weekend for upper extremity strengthening, ADLs, and overall functional mobility. RODY
--- NOTE | 2018-03-27 15:56 | OT PM DAY ---
Diagnosis : Lumbar Fusion PM - Occupational Therapy S: The patient reports he wants to go home to his sister's house. O: The patient was in bed upon the therapist's arrival and he did not want to get out of bed. Today we worked on upper extremity strengthening exercises including red theraband resisted biceps x20 repetitions, internal/external rotation, shoulder extension, shoulder adduction, and triceps extension followed by blue foam block for squeezing x2 minutes bilaterally. A: The patient did well with the exercises but he was slightly at an angle supine in bed. P: Continue seeing patient BID during the week and one time per day over the weekend for upper extremity strengthening, ADLs, and overall functional mobility. RODY
--- NOTE | 2018-03-27 16:19 | PT.PROG ---
Progress Note Progress Note: S. Patient stated that he is feeling better today compared to last week. O. Patient ambulated 50 feet to the garner and back to his room where he was left with call light and alarm. A. Patient tolerated ambulation fair, he was very fatigued after his shower. He continues to be very anxious about pain and overexerting. Patient would continue to benefit from skilled therapy to increase strength and mobility at this time. P. continue POC.
--- NOTE | 2018-03-27 17:03 | PT.PROG ---
Progress Note Progress Note: S. Patient stated that he would go for a walk this afternoon. O. Patient was seated in his chair and performed sit to stand transfer and ambulated 50 feet from the bed to the garner and 50 feet back to his bed where he was left with call light and alarm. A. Patient tolerated ambulation fair, patient requires min assist with sit to stand transfers and Stand by guard assist with ambulation, however he is very hesitant and requires frequent verbal cues to continue with ambulation, he was able to ambulate further today compared to yesterday. Patient would continue to benefit from skilled therapy to increase strength and mobility at this time. P. Continue POC.
[2018-03-28] MEDS: IMATINIB 400 MG PO SCH (08:03)
[2018-03-28] MEDS: lamoTRIgine 100 MG TABLET PO SCH ×2 (08:04→16:12)
[2018-03-28] MEDS: oxyCODONE/APAP 10/325 Tab 1 EACH TAB PO PRN ×3 (08:05→17:04)
[2018-03-28] MEDS: PREGABALIN 100 MG CAPSULE PO SCH (08:08)
[2018-03-28] MEDS: LevETIRAcetam Tab 500 MG TABLET PO SCH (08:09)
[2018-03-28] MEDS: DOCUSATE 100 MG CAPSULE PO SCH (08:09)
[2018-03-28] MEDS: ALPRAZolam Tab 1 MG TABLET PO SCH ×2 (08:10→16:14)
--- NOTE | 2018-03-28 11:58 | OT.PROG ---
Progress Note Progress Note: S: pt reports that the simulated bathroom was similar to his at home. He stated that he is not sure if his sisters is set up the same and he is concerned that it does not have the non skid bottom. He is not sure how he is going to get his medications. O: pt was seen in his room and completed doffing and donning of LE/UE clothing with mod Ind with use of fur ironer and sockaid as it took him longer to complete. He also completed several sit to stands safely and effectively. He completed x4 tub transfers Ind and used grap bars very effectively. He returned to his room and completed transfer back to chair and doffed brace Ind. A: pt participated well today although every activity he does is very slow. He completed dressing well with sock aid and fur ironer and did not need many cues to complete. Pt is very stable throughout transfers, but once again is slow. It is believed with some assistance in mornings and supervision at nights pt may return to live with sister and brother in law safely. P: continue per POC.
--- NOTE | 2018-03-28 13:19 | DCSUMMARY ---
Hospitalization Summary Admit Date: 03/22/2018 Discharge Date: 03/28/18 Hospital Course: Discharge diagnoses 1. Status post lumbar surgery for chronic low back pain 2. 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 History of seizure disorder Hospital course This is a 57 years old male with a chronic leukemia probably myelogenous leukemia, seizure disorder and problem with chronic back pain with history of previous back surgery who came into the hospital to have surgery with Dr. Malloyr. Apparently he had previous surgery and things got worse about 2 months prior to the current surgery. Patient came into the hospital had the surgery done by Dr. Mallory. The hospitalist service were consulted for management of medical issues. He was seen by Dr. Brady please see his note. For the details of the surgical procedure please see Dr. Mallory's note. Postoperatively he did have some edema of his face and hands but that's resolved on its own. We continued with his usual medication. He started physical therapy and occupational therapy. It was thought that he may need to go to [place] for physical therapy however he was deemed to be not a candidate for it. Though initially accepted to go to a rehabilitation at one of the half-way in [place] later on he and his sister decided later on to not to go there. He will be discharge to care of a friend. From the medical point of view we continued his medication there were no significant events. Apparently Dr. Mallory wrote for prescription for pain medication and they will call him for follow-up with him. Discharge instruction Diet regular Activity as tolerated Medications Current Medication(s) 3 Medication Instructions Recorded Confirmed Type alprazolam 1 mg tablet 1 mg PO BID-TID PRN 02/27/18 03/22/18 History imatinib 100 mg capsule 400 mg PO QID cap 02/27/18 03/22/18 History lamotrigine 150 mg tablet 150 mg PO BID 02/27/18 03/22/18 History levetiracetam 250 mg tablet 250 mg PO BID 02/27/18 03/22/18 History pregabalin 200 mg capsule 200 mg PO BID 02/27/18 03/22/18 History oxyCODONE/APAP 10/325 Tab 1 each PO Q4H PRN tab 03/28/18 Rx [Percocet 10/325 Tab] Follow-up with Dr. Mallory to call them for appointment, follow-up with PCP Condition at discharge stable for discharge Exam - Vitals Vital Signs: Vital Signs Temperature 97.1 F Temperature Source Temporal Artery Scan Pulse Rate [Apical] 64 Pulse Rate [Pulse Oximeter] 73 Pulse Rate 71 Respiratory Rate 17 Blood Pressure [Left Arm] 102/68 Blood Pressure [Right Arm] 87/47 Blood Pressure 110/57 Pulse Ox 93 Oxygen Flow Rate 2L Oxygen Delivery Method Room Air Height 5 ft 9 in Weight 192 lb 8 oz - General General Appearance: No Acute Distress, Cooperative - Head Head Exam: Normal Inspection - ENT ENT Exam: POSITIVE: Normal Exam - Neck Neck Exam: Normal Inspection - Respiratory Respiratory Exam: POSITIVE: Clear to Auscultation - Bilaterally - Cardiovascular Cardiovascular Exam: POSITIVE: RRR - GI/Abdominal GI/Abdominal Exam: POSITIVE: Normal Bowel Sounds, Non Tender, Non Distended, Soft, No Organomegaly - Rectal Rectal Exam: POSITIVE: Deferred - External Exam: POSITIVE: Deferred - Extremities Extremities Exam: POSITIVE: Normal Inspection - Back Additional Back Exam Details: dressing is clean. - Neurological Additional Neurological Exam Details: slow but no focal findings. - Integumentary Integumentary Exam: POSITIVE: Normal Color Patient Problems - Patient Problem List (1) Chronic back pain Current Visit: No Status: Chronic Code(s): M54.9 - Dorsalgia, unspecified; G89.29 - Other chronic pain Qualifiers: Back pain location: low back pain Back pain laterality: bilateral Sciatica presence: without sciatica Qualified Code(s): M54.5 - Low back pain; G89.29 - Other chronic pain Category: Medical (2) Seizure disorder Current Visit: Yes Status: Acute Code(s): G40.909 - Epilepsy, unspecified, not intractable, without status epilepticus Category: Medical (3) Status post lumbar surgery Current Visit: Yes Status: Acute Code(s): Z98.890 - Other specified postprocedural states Category: Medical
--- NOTE | 2018-03-28 16:00 | CONSULT ---
Consult Note - Consult Primary Care Provider: KAVEH BARCENAS - History of Present Illness History of Present Illness: Mr. Herrera is doing about the same today. He continues with slow progress. Vss, afebrile I spoke with him briefly about his plans and he said his [id number] was on his way to get him. He will follow up with Dr Mallory in the office. Past Medical History Medical History: 1. Chronic lymphocytic leukemia. 2. Seizure disorder. 3. Chronic back pain Surgical History: 1. Prior lumbar surgery Pertinent Family History: Mother due diabetes on my review of medical record and father due to liver cancer Past Social History: History of smoking. Not . [place]. No children. Does not Drink alcohol. Tobacco Use: Former Smoker In the Past 12 Months, Have Used or Abuse Any of the Following Substance: None Alcohol Use: None Medication / Allergies Home Medications: Home Medications 3 Medication Instructions Recorded Confirmed Type alprazolam 1 mg tablet 1 mg PO BID-TID PRN 02/27/18 03/22/18 History imatinib 100 mg capsule 400 mg PO QID cap 02/27/18 03/22/18 History lamotrigine 150 mg tablet 150 mg PO BID 02/27/18 03/22/18 History levetiracetam 250 mg tablet 250 mg PO BID 02/27/18 03/22/18 History pregabalin 200 mg capsule 200 mg PO BID 02/27/18 03/22/18 History oxycodone-acetaminophen 5 mg-325 1 tab PO Q4-6H PRN #60 tab 03/28/18 Rx mg tablet Allergies/Adverse Reactions: Allergies 3 Allergy/AdvReac Type Severity Reaction Status Date / Time codeine Allergy Severe Siezures Verified 03/22/18 07:30 chocolate flavor AdvReac Unknown HIVES Verified 03/27/18 08:27 Exam - Vitals Vital Signs: Vital Signs Temperature 97.1 F Temperature Source Temporal Artery Scan Pulse Rate [Apical] 64 Pulse Rate [Pulse Oximeter] 73 Pulse Rate 71 Respiratory Rate 17 Blood Pressure [Left Arm] 102/68 Blood Pressure [Right Arm] 87/47 Blood Pressure 110/57 Pulse Ox 93 Oxygen Flow Rate 2L Oxygen Delivery Method Room Air Height 5 ft 9 in Weight 87.317 kg Results - Labs CBC and BMP: 03/23/18 03:58 03/24/18 05:12
[2018-03-28 16:06] VITALS: BP 114/67; RESP 18; TEMP 98.1; O2SAT 97
== END 2018-03-28 17:47 | disposition home or self-care (01) | DRG 460 ==
LOC: OPS 06:41 → MED/SURG 19:43
PROVIDERS: ADMIT Neurological Surgery; ATTEND Neurological Surgery